=== PATIENT | female | born 1990 | race Caucasian/White ===

== ENCOUNTER 2018-11-24 20:54 | Emergency (ER) | payer OTHER ==
[2018-11-24 21:09] VITALS: BP 117/79
--- NOTE | 2018-11-24 22:04 | XRAY Report ---
Reason: L knee pain after jumping Procedure Date: 11/24/2018 Accession Number: [id number] / [id number] Procedure: XR - Knee 4 View LT CPT Code: FULL RESULT: EXAM: LEFT KNEE RADIOGRAPHY EXAM DATE: 11/24/2018 09:40 PM. CLINICAL HISTORY: Left knee pain after jumping. COMPARISON: None. TECHNIQUE: 4 views. FINDINGS: Bones: Normal. No fractures or bone lesions. Joints: Normal. No effusion. No subluxations. Soft Tissues: Unremarkable IMPRESSION: Normal knee radiography. RADIA
--- NOTE | 2018-11-24 22:09 | ED Physician Documentation ---
PD HPI LOWER EXT INJURY - Stated complaint Stated Complaint: LEFT KNEE PX - Chief complaint Chief Complaint: Trauma Ext - History obtained from History obtained from: Patient, Friend - History of Present Illness PD HPI LOW EXT INJURY LOCATION: Left, Knee Type of injury: Fall, Twist Where injury occurred: Home Timing - onset: How many days ago (9) Timing - duration: Days (9) Timing - details: Abrupt onset Pain level max: 7 Pain level now: 6 Improved by: Rest, Ice, Immobilization Worsened by: Moving, Palpating Associated symptoms: Swelling. No: Weakness, Numbness, Tingling Contributing factors: No: Anticoagulated, Prior ortho surgery, Prosthetic joint Recently seen: Not recently seen Review of Systems Constitutional: denies: Fever, Chills Respiratory: denies: Cough GI: denies: Abdominal Pain, Nausea, Vomiting, Diarrhea : denies: Now EGA Skin: denies: Rash Musculoskeletal: denies: Neck pain, Back pain Neurologic: denies: Headache PD PAST MEDICAL HISTORY - Past Medical History Past Medical History: No - Past Surgical History Past Surgical History: No - Present Medications Home Medications: Ambulatory Orders Medication Instructions Recorded Confirmed Meloxicam [Mobic] 15 mg PO DAILY PRN #20 tablet 11/24/18 - Allergies Allergies/Adverse Reactions: Allergies Allergy/AdvReac Type Severity Reaction Status Date / Time metoclopramide [From Reglan] Allergy Unknown Verified 11/24/18 21:10 - Social History Does the pt smoke?: No Smoking Status: Never smoker Does the pt drink ETOH?: Yes Does the pt have substance abuse?: No - Immunizations Immunizations are current?: Yes - POLST Patient has POLST: No PD ED PE NORMAL - Vitals Vital signs reviewed: Yes - General General: Alert and oriented X 3, No acute distress - Derm Derm: Warm and dry - Extremities Extremities: Other (L knee - laxity to the MCL. LCL, ACL, PCL intact. NVI. ) - Neuro Neuro: Alert and oriented X 3 - Psych Psych: Normal mood, Normal affect Results - Vitals Vitals: Vital Signs - 24 hr 11/24/18 21:04 Temperature 36.4 C L Heart Rate 83 Respiratory 15 Rate Blood Pressure 117/79 O2 Saturation 97 Oxygen O2 Source Room air - Rads (name of study) L knee xray Radiology: Prelim report reviewed, EMP read contemporaneously, See rad report (Normal knee radiography. ) PD MEDICAL DECISION MAKING - ED course Complexity details: reviewed results, re-evaluated patient, considered differential, d/w patient ED course: 28-year-old female presents the emergency department with what appears to be a left MCL sprain. Placed on an articulating hinged knee brace for support and will have her follow-up with her doctor. She has a cane that she is utilizing to ambulate. Negative x-ray. Patient counseled regarding signs and symptoms for which I believe and urgent re-evaluation would be necessary. Patient with good understanding of and agreement to plan and is comfortable going home at this time This document was made in part using voice recognition software. While efforts are made to proofread this document, sound alike and grammatical errors may occur. Departure - Departure Disposition: 01 Home, Self Care Clinical Impression: Sprain of medial collateral ligament of left knee, initial encounter Condition: Good Instructions: ED Sprain Knee Follow-Up: JOAN ALCOCER [Primary Care Provider] - Within 1 week Prescriptions: Meloxicam [Mobic] 15 mg PO DAILY PRN #20 tablet PRN Reason: pain Comments: Use the brace for comfort over the next week. Return if you worsen. Follow-up with your doctor for further care. Your x-ray is normal today. You may need physical therapy once this heals. Discharge Date/Time: 11/24/18 22:26
== END 2018-11-24 22:26 | disposition home or self-care (01) ==
LOC: ED 20:54
DX: S83.412A Sprain of medial collateral ligament of left knee, initial encounter (principal); X50.1XXA Overexertion from prolonged static or awkward postures, initial encounter; Y93.39 Activity, other involving climbing, rappelling and jumping off
CPT/HCPCS: 99283

== ENCOUNTER 2019-01-08 10:36 | Emergency (ER) | payer OTHER ==
--- NOTE | 2019-01-08 12:23 | XRAY Report ---
Reason: dropped heavy object onto left great toe Procedure Date: 01/08/2019 Accession Number: [id number] / [id number] Procedure: XR - Toe(s) LT CPT Code: FULL RESULT: EXAM: LEFT TOE RADIOGRAPHY EXAM DATE: 01/08/2019 11:55 AM. CLINICAL HISTORY: Dropped heavy object onto left great toe. Swelling COMPARISON: None. TECHNIQUE: 3 views. FINDINGS: Bones: Normal. No fracture or bone lesion. Joints: Normal. No subluxations. Soft Tissues: Soft tissue swelling. IMPRESSION: Normal toe radiography. RAD[facility]
--- NOTE | 2019-01-08 13:33 | ED Physician Documentation ---
PD HPI LOWER EXT INJURY - Stated complaint Stated Complaint: L FOOT INJ - Chief complaint Chief Complaint: Ext Problem - History obtained from History obtained from: Patient - History of Present Illness PD HPI LOW EXT INJURY LOCATION: Left, Toe Type of injury: Blunt / blow Timing - onset: Yesterday Timing - details: Abrupt onset Severity Comments: moderate Improved by: Rest Worsened by: Moving, Palpating Associated symptoms: Discolored. No: Tingling, Swelling Contributing factors: No: Anticoagulated Similar symptoms before: Has not had sx before Recently seen: Not recently seen Review of Systems Constitutional: denies: Fever Cardiac: denies: Chest pain / pressure Respiratory: denies: Cough GI: denies: Abdominal Pain Skin: denies: Laceration (s) Musculoskeletal: reports: Extremity pain, Joint pain PD PAST MEDICAL HISTORY - Past Surgical History Past Surgical History: No - Present Medications Home Medications: Ambulatory Orders Medication Instructions Recorded Confirmed Meloxicam [Mobic] 15 mg PO DAILY PRN #20 tablet 11/24/18 - Allergies Allergies/Adverse Reactions: Allergies Allergy/AdvReac Type Severity Reaction Status Date / Time metoclopramide [From Reglan] Allergy Unknown Verified 11/24/18 21:10 - Social History Does the pt smoke?: No Smoking Status: Never smoker Does the pt drink ETOH?: Yes Does the pt have substance abuse?: No - Immunizations Immunizations are current?: Yes - POLST Patient has POLST: No PD ED PE NORMAL - General General: Alert and oriented X 3, No acute distress - HEENT HEENT: Atraumatic, PERRL, EOMI, Ears normal - Derm Derm: Normal color - Extremities Extremities: No deformity, Normal ROM s pain, Other (The patient has tenderness palpation of the Left great toe, there is no evidence of effusion, ecchymosis or crepitus. The patient has normal sensation. The patient has no other area of tenderness in the foot that is acute. The patient has a normal dorsalis pedis pulse and normal cap refill) - Neuro Neuro: Alert and oriented X 3, Normal speech - Psych Psych: Normal affect Results - Vitals Vitals: Vital Signs - 24 hr 01/08/19 11:17 Temperature 36.2 C L Heart Rate 81 Respiratory 16 Rate Blood Pressure 99/63 O2 Saturation 100 Oxygen O2 Source Room air - Rads (name of study) XR toe Radiology: Final report received, See rad report PD MEDICAL DECISION MAKING - ED course ED course: No fracture on x-ray, the patient appears appropriate for discharge and reevaluation as an outpatient. The patient will return to the emergency department for any worsening or any concerns Departure - Departure Disposition: 01 Home, Self Care Clinical Impression: Toe contusion Qualifiers: Encounter type: initial encounter Toe: great toe Damage to nail status: without damage Laterality: unspecified laterality Qualified Code(s): S90.119A - Contusion of unspecified great toe without damage to nail, initial encounter Condition: Good Instructions: ED Contusion Finger Toe Ch Follow-Up: JENNIFER BIRMINGHAM [Primary Care Provider] - Within 1 week Comments: Please return to the emergency department for worsening symptoms or any concerns Forms: Activity restrictions
[2019-01-08 13:55] VITALS: BP 108/62
== END 2019-01-08 13:57 | disposition home or self-care (01) ==
LOC: ED 10:36
DX: S90.112A Contusion of left great toe without damage to nail, initial encounter (principal); W22.8XXA Striking against or struck by other objects, initial encounter
CPT/HCPCS: 73660; 99282; 99283

== ENCOUNTER 2019-10-08 08:49 | Outpatient (CLI) | payer OTHER ==
--- NOTE | 2019-10-10 11:47 | Nuclear Medicine Report ---
Reason: PAIN IN RT FOOT Procedure Date: 10/08/2019 Accession Number: [id number] / [id number] Procedure: NM - Bone 3-Phase CPT Code: Final Report FULL RESULT: EXAM: TRIPLE-PHASE BONE SCAN LIMITED EXAM DATE: 10/08/2019 03:12 PM. CLINICAL HISTORY: Pain in right foot. COMPARISON: None available. TECHNIQUE: Patient was injected with 29.8 mCi of technetium 99m MDP intravenously with flow phase gamma camera imaging anteriorly over the feet and ankles, 5 seconds per frame for 1 minute. Subsequently, blood pool images of the feet and ankles were obtained. The patient returned 3 hours later for multiple spot images of the feet and ankles. FINDINGS: Flow Phase: Slightly greater flow to the right ankle. Blood Pool Phase: Asymmetrically greater activity in the medial right ankle and in the left mid foot. Delayed Phase: There is nonfocal, asymmetrically greater uptake in the right ankle and left mid foot. IMPRESSION: 1. Hyperemia with asymmetric delayed phase nonfocal increased uptake in the medial right ankle. 2. Blood pool and delayed phase asymmetrically greater activity in the left mid foot. RAD[facility]
== END 2019-10-08 08:50 | disposition home or self-care (01) ==
LOC: DI 08:49
PROVIDERS: ATTEND Physician Assistant
DX: M79.671 Pain in right foot (principal); R68.89 Other general symptoms and signs
CPT/HCPCS: 78315

== ENCOUNTER 2021-01-15 18:27 | Emergency (ER) | payer OTHER ==
[2021-01-15] MEDS ORDERED: PROMETHAZINE INJ 25 MG in SODIUM CHLORIDE 0.9% 50 ML IV STA (18:40)
[2021-01-15] MEDS ORDERED: DEXAMETHASONE 10 MG/ML VIAL IVP STA (18:40)
[2021-01-15] MEDS ORDERED: SODIUM CHLORIDE 0.9% 1,000 ML IV STA (18:40)
[2021-01-15] MEDS ORDERED: KETOROLAC 30 MG/ML VIAL IVP STA (18:40)
--- NOTE | 2021-01-15 18:49 | ED Physician Documentation ---
PD HPI HEADACHE - Stated complaint Stated Complaint: KEMP,VOMITING,WEAKNESS - Chief complaint Chief Complaint: Neuro - History obtained from History obtained from: Patient - Additional information Additional information: 30-year-old woman with history of migraines. Had sclerotherapy of varicose veins on her legs today and developed bilateral throbbing headache ever since associated with nausea and light sensitivity similar to prior migraines. She is tried Mobic, Maxalt, Excedrin at home without relief. Pain was gradual in onset and similar to prior migraines Review of Systems Ten Systems: 10 systems reviewed and negative Constitutional: denies: Fever, Chills Cardiac: denies: Chest pain / pressure, Palpitations Respiratory: denies: Dyspnea, Cough PD PAST MEDICAL HISTORY - Past Surgical History Past Surgical History: No - Present Medications Home Medications: Ambulatory Orders Medication Instructions Recorded Confirmed Meloxicam [Mobic] 15 mg PO DAILY PRN #20 tablet 11/24/18 - Allergies Allergies/Adverse Reactions: Allergies Allergy/AdvReac Type Severity Reaction Status Date / Time metoclopramide [From Reglan] Allergy Unknown Verified 01/15/21 18:31 - Social History Does the pt smoke?: No Smoking Status: Never smoker Does the pt drink ETOH?: Yes Does the pt have substance abuse?: No - Immunizations Immunizations are current?: Yes - POLST Patient has POLST: No PD ED PE NORMAL - Vitals Vital signs reviewed: Yes - General General: Alert and oriented X 3, Other (uncomfortable) - Neck Neck: Supple, no meningeal sign, No bony TTP - Neuro Neuro: Alert and oriented X 3, No motor deficit, No sensory deficit, Normal speech Results - Vitals Vitals: Vital Signs - 24 hr 01/15/21 01/15/21 18:32 19:34 Temperature 36.6 C Heart Rate 82 79 Respiratory 19 16 Rate Blood Pressure 103/65 110/74 O2 Saturation 100 98 Oxygen O2 Source Room air PD MEDICAL DECISION MAKING - ED course ED course: The headache is gradual in onset and similar to prior headaches. As such I doubt subarachnoid hemorrhage. There are no infectious symptoms such as fever or stiff neck to make me suspect meningitis. No carbon monoxide exposure by history. Initially treated with Toradol, dexamethasone, Phenergan and IV fluids. She had minimal relief with this and this was followed with IV Haldol and Benadryl. She had more relief with this but still had a significant headache. At that point though she felt like she could go home and go to sleep and declined further treatment. Departure - Departure Disposition: Home, Self Care Clinical Impression: Migraine Qualifiers: Migraine type: with aura Status migrainosus presence: with status migrainosus Intractability: intractable Qualified Code(s): G43.111 - Migraine with aura, intractable, with status migrainosus Condition: Good Record reviewed to determine appropriate education?: Yes Instructions: ED Headache Migraine Comments: Return anytime for new or worsening symptoms or unbearable pain. Follow-up with your neurologist as routine.
[2021-01-15] MEDS ORDERED: HALOPERIDOL 5 MG/ML VIAL IVP ONE (19:26)
[2021-01-15] MEDS ORDERED: diphenhydrAMINE INJ 50 MG/ML VIAL IVP STA (19:26)
[2021-01-15 19:43] VITALS: BP 110/74
== END 2021-01-15 20:25 | disposition home or self-care (01) ==
LOC: ED 18:27
DX: G43.111 Migraine with aura, intractable, with status migrainosus (principal)
CPT/HCPCS: 96365; 96375; 99283; J1200; J7040

== ENCOUNTER 2021-04-10 18:48 | Emergency (ER) | payer OTHER ==
--- NOTE | 2021-04-10 19:20 | ED Physician Documentation ---
PD HPI FOCAL NEURO - Stated complaint Stated Complaint: STROKE SYMPTOMS - Chief complaint Chief Complaint: Neuro - History obtained from History obtained from: Patient - History of Present Illness Timing - onset: Today Timing - duration: Hours Timing - details: Gradual onset, Still present Severity of deficit: Moderate Weakness: No: Face, Arm, Hand, Leg, Foot, Right, Left Numbness: Arm, Hand, Leg, Foot, Left Associated symptoms: Headache, Nausea / vomiting. No: Seizure, Syncope, Fall, Head injury, Chest pain, Neck pain, Back pain, Fever Contributing factors: positive: Other (hx of migraine) Baseline status: positive: A&OX3, ambulatory, indep Similar symptoms before: Diagnosis (migraine) Recently seen: Not recently seen - Additional information Additional information: 30-year-old female with a history of migraines has nausea a low-grade headache and she has developed numbness to the left side of her body as well as some difficulty with speaking. She is not having difficulty with strength. She is having some difficulty making words happen. She does not feel that she is anxious.The patient has had multiple evaluations for migraine previously and on initial presentation she tells me that she has had as many as 20 CAT scans of her head. Review of Systems Constitutional: denies: Fever Eyes: denies: Decreased vision Ears: denies: Loss of hearing, Ear pain Nose: denies: Rhinorrhea / runny nose, Congestion Throat: denies: Sore throat Cardiac: denies: Chest pain / pressure, Palpitations Respiratory: denies: Dyspnea, Cough GI: reports: Nausea. denies: Abdominal Pain, Vomiting, Constipation, Diarrhea : denies: Dysuria, Frequency Skin: denies: Rash Musculoskeletal: denies: Neck pain, Back pain, Extremity pain Neurologic: reports: Numbness, Difficulty speaking, Headache. denies: Generalized weakness, Focal weakness, Confused, Altered mental status, Head injury, LOC PD PAST MEDICAL HISTORY - Past Surgical History Past Surgical History: No - Present Medications Home Medications: Ambulatory Orders Medication Instructions Recorded Confirmed Butalbit/Acetamin/Caff/Codeine 1 cap PO Q4H 04/10/21 04/10/21 [Fioricet-Cod [id number] Cap] Promethazine [Phenergan] 25 mg PO Q6H PRN 04/10/21 04/10/21 Rizatriptan 10 mg PO Q6HR 04/10/21 04/10/21 - Allergies Allergies/Adverse Reactions: Allergies Allergy/AdvReac Type Severity Reaction Status Date / Time metoclopramide [From Reglan] Allergy Unknown Verified 04/10/21 19:08 - Social History Does the pt smoke?: No Smoking Status: Never smoker Does the pt drink ETOH?: Yes Does the pt have substance abuse?: No - Immunizations Immunizations are current?: Yes - POLST Patient has POLST: No PD ED PE NORMAL - Vitals Vital signs reviewed: Yes (Hypertensive mild) - General General: Alert and oriented X 3, Well developed/nourished, Other (Anxious appearing 30-year-old female who is hyperventilating and having some difficulty getting words out. She is having some difficulty with word finding.) - HEENT HEENT: Atraumatic, PERRL, EOMI - Neck Neck: Supple, no meningeal sign, No bony TTP - Cardiac Cardiac: RRR, No murmur - Respiratory Respiratory: No respiratory distress, Clear bilaterally - Abdomen Abdomen: Normal bowel sounds, Soft, Non tender, Non distended, No organomegaly - Back Back: No CVA TTP, No spinal TTP - Derm Derm: Normal color, Warm and dry, No rash - Extremities Extremities: No deformity, No edema - Neuro Neuro: Alert and oriented X 3, spanish lecturer 2-12 intact, No motor deficit, No sensory deficit, Other (Speech is halted and word finding is present. The patient appears frustrated with attempts at speaking.) Eye Opening: Spontaneous Motor: Obeys Commands Verbal: Oriented GCS Score: 15 - Psych Psych: Normal mood, Normal affect NIHSS - Time Time: 19:28 - Level of Consciousness Level of consciousness: (0) Alert, Keenly responsive LOC Questions: (0) Answers both Q's correct LOC Commands: (0) Performs both correctly - Gaze Best Gaze: (0) Normal - Visual Visual: (0) No loss - Facial Palsy Facial Palsy: (0) Normal, symmetrical movement - Motor Arms (both separate) Motor Arm (right): (0) No drift Motor Arm (left): (0) No drift - Motor Legs (both separate) Motor Leg (right): (0) No drift Motor Leg (left): (0) No drift - Limb Ataxia Limb Ataxia: (0) Absent - Sensory Sensory: (0) Normal - Best Language Best Language: (1) [id number] - Dysarthria Dysarthria: (0) Normal - Extinction and Inattention (formally neg Extinction and inattention: (0) No abnormality - Total Score/Results Total Score/Result: 1 Results - Vitals Vitals: Vital Signs - 24 hr 04/10/21 04/10/21 04/10/21 19:02 19:55 20:11 Temperature 37.1 C Heart Rate 95 89 Respiratory 18 16 15 Rate Blood Pressure 111/88 H 124/74 O2 Saturation 100 99 04/10/21 04/10/21 04/10/21 21:01 21:10 21:42 Temperature Heart Rate 77 72 80 Respiratory 16 16 16 Rate Blood Pressure 108/75 97/63 O2 Saturation 97 100 04/10/21 04/10/21 04/10/21 21:50 22:58 23:56 Temperature Heart Rate 89 77 68 Respiratory 16 14 16 Rate Blood Pressure 96/79 106/70 O2 Saturation 100 97 98 Oxygen O2 Source Room air - EKG (time done) 1856 Rate: Rate (enter#) (98) Rhythm: NSR Ischemia: Normal ST segments Compare to prior EKG: Old EKG unavailable Computer interpretation: Agree with computer - Labs Labs: Laboratory Tests 04/10/21 04/10/21 04/10/21 19:40 19:40 21:30 WBC 5.7 RBC 4.33 Hgb 13.5 Hct 39.9 MCV 92.1 MCH 31.2 H MCHC 33.8 RDW 12.3 Plt Count 137 MPV 10.6 Neut # (Auto) 2.9 Lymph # (Auto) 2.2 [place] # (Auto) 0.4 Eos # (Auto) 0.1 Baso # (Auto) 0.0 Absolute Nucleated RBC 0.00 Nucleated RBC % 0.0 Sodium 137 Potassium 3.2 L Chloride 100 L Carbon Dioxide 26 Anion Gap 11.0 BUN 15 Creatinine 0.6 Estimated GFR (MDRD) 119 Glucose 99 Calcium 9.3 Total Bilirubin 1.3 H AST 26 ALT 27 Alkaline Phosphatase 59 Total Protein 7.7 Albumin 4.8 Globulin 2.9 Albumin/Globulin Ratio 1.7 Lipase 29 Urine Color YELLOW Urine Clarity CLEAR Urine pH 8.5 H Ur Specific [place] 1.015 Urine Protein NEGATIVE Urine Glucose (UA) NEGATIVE Urine Ketones 15 H Urine Occult Blood NEGATIVE Urine Nitrite NEGATIVE Urine Bilirubin NEGATIVE Urine Urobilinogen 0.2 (NORMAL) Ur Leukocyte Esterase NEGATIVE Ur Microscopic Review NOT INDICATED Urine Culture Comments NOT INDICATED Urine HCG, Qual NEGATIVE Urine Opiates Screen NEGATIVE Ur Oxycodone Screen NEGATIVE Urine Methadone Screen NEGATIVE Ur Propoxyphene Screen NEGATIVE Ur Barbiturates Screen POSITIVE H Ur Tricyclics Screen NEGATIVE Ur Phencyclidine Scrn NEGATIVE Ur Amphetamine Screen NEGATIVE U Methamphetamines Scrn NEGATIVE U Benzodiazepines Scrn NEGATIVE Urine Cocaine Screen NEGATIVE U Cannabinoids Screen NEGATIVE - Rads (name of study) CT head Radiology: Prelim report reviewed (Impression: 1. No acute intracranial abnormality. Age-appropriate exam.), EMP read indepedently, See rad report PD MEDICAL DECISION MAKING - ED course Complexity details: reviewed old records, reviewed results, re-evaluated patient, considered differential, d/w patient ED course: 30-year-old anxious appearing female presents with left-sided body numbness and difficult to cool to the finding words. She appears frustrated with this. She is administered Ativan and developed subsequent worsening of her headache. She is treated for migraine with the usual migraine cocktail consisting of a liter of saline 10 mg of dexamethasone, 10 mg of Compazine, 25 mg of Benadryl, and 30 mg of Toradol intravenously. She has some improvement in her symptoms of articulation and continues to have headache and nausea. She is subsequently administered Dilaudid and Phenergan with improvement in her headache. I queried the patient about her CAT scans as I found in our record that we have none here. She indicated to me that she had CAT scans done in 2003 and 2009 and we performed a CAT scan here today. Departure - Departure Disposition: 01 Home, Self Care Clinical Impression: Migraine Qualifiers: Migraine type: hemiplegic Status migrainosus presence: without status migrainosus Intractability: not intractable Qualified Code(s): G43.409 - Hemiplegic migraine, not intractable, without status migrainosus Condition: Stable Instructions: ED Headache Migraine Follow-Up: KEVIN STEELE MD [Primary Care Provider] - Forms: Activity restrictions
[2021-04-10] MEDS ORDERED: LORazepam 2 MG/ML VIAL IVP STA (19:37)
[2021-04-10 19:51] LABS: BASOPHILS % (AUTO) 0.4 %; EOSINOPHILS # (AUTO) 0.1 10^3/uL (0.0-0.7); EOSINOPHILS % (AUTO) 1.1 %; HCT - HEMATOCRIT 39.9 % (37.0-47.0); HGB - HEMOGLOBIN 13.5 g/dL (12.0-16.0); LYMPHOCYTES # (AUTO) 2.2 10^3/uL (1.5-3.5); LYMPHOCYTES % (AUTO) 38.9 %; MEAN CORPUSCULAR HEMOGLOBIN 31.2 pg (27.0-31.0); MEAN CORPUSCULAR HGB CONC 33.8 g/dL (32.0-36.0); MEAN CORPUSCULAR VOLUME 92.1 fL (81.0-99.0); MEAN PLATELET VOLUME 10.6 fL (7.9-10.8); MONOCYTES # (AUTO) 0.4 10^3/uL (0.0-1.0); MONOCYTES % (AUTO) 7.8 %; NEUTROPHILS # (AUTO) 2.9 10^3/uL (1.5-6.6); NEUTROPHILS % (AUTO) 51.6 %; PLT - PLATELET COUNT 137 10^3/uL (130-450); RED BLOOD COUNT 4.33 10^6/uL (4.20-5.40); RED CELL DISTRIBUTION WIDTH 12.3 % (12.0-15.0); WHITE BLOOD COUNT 5.7 x10^3/uL (4.8-10.8)
[2021-04-10 20:01] LABS: ALBUMIN 4.8 g/dL (3.2-5.5); ALBUMIN/GLOBULIN RATIO 1.7 (1.0-2.2); BILIRUBIN,TOTAL 1.3 mg/dL (0.2-1.0); CALCIUM 9.3 mg/dL (8.5-10.3); CREATININE 0.6 mg/dL (0.4-1.0); POTASSIUM 3.2 mmol/L (3.5-5.0); TOTAL PROTEIN 7.7 g/dL (6.7-8.2)
[2021-04-10] MEDS ORDERED: SODIUM CHLORIDE 0.9% 1,000 ML IV STA (20:16)
[2021-04-10] MEDS ORDERED: PROCHLORPERAZINE 10 MG/2 ML VIAL IVP STA (20:16)
[2021-04-10] MEDS ORDERED: DEXAMETHASONE 10 MG/ML VIAL IVP STA (20:17)
[2021-04-10] MEDS ORDERED: diphenhydrAMINE INJ 50 MG/ML VIAL IVP STA (20:17)
[2021-04-10] MEDS ORDERED: KETOROLAC 30 MG/ML VIAL IVP STA (20:17)
[2021-04-10 21:48] LABS: MUDS CUTOFF CONCENTRATIONS CUTOFF CONC BELOW:
[2021-04-10 21:50] LABS: BILIRUBIN,URINE NEGATIVE (NEGATIVE); GLUCOSE, URINE (UA) NEGATIVE (NEGATIVE); KETONES,URINE (UA) 15 mg/dL (NEGATIVE); LEUKOCYTE ESTERASE, URINE NEGATIVE (NEGATIVE); NITRITE,URINE NEGATIVE (NEGATIVE); OCCULT BLOOD,URINE NEGATIVE (NEGATIVE); PH,URINE 8.5 PH (5.0-7.5); PROTEIN,URINE NEGATIVE (NEGATIVE); UROBILINOGEN,URINE 0.2 (NORMAL) E.U./dL (NORMAL)
[2021-04-10 21:52] LABS: CLARITY,URINE CLEAR (CLEAR); HCG UR QUAL NEGATIVE
[2021-04-10 22:00] LABS: AMPHETAMINE SCREEN,URINE NEGATIVE (NEGATIVE); BARBITURATE SCREEN,UR POSITIVE (NEGATIVE); BENZODIAZEPINES SCREEN, URINE NEGATIVE (NEGATIVE); COCAINE SCREEN URINE NEGATIVE (NEGATIVE); METHADONE SCREEN, URINE NEGATIVE (NEGATIVE); METHAMPHETAMINES SCREEN, URINE NEGATIVE (NEGATIVE); OPIATE SCREEN, URINE NEGATIVE (NEGATIVE); OXYCODONE SCREEN, URINE NEGATIVE (NEGATIVE); PROPOXYPHENE SCREEN, URINE NEGATIVE (NEGATIVE); THC CANNABINOID SCREEN, URINE NEGATIVE (NEGATIVE); TRICYCLIC ANTIDEPRESSANT,URINE NEGATIVE (NEGATIVE)
[2021-04-10] MEDS ORDERED: HYDROmorphone 1 MG/ML CARPUJECT IVP STA (22:06)
[2021-04-10] MEDS ORDERED: PROMETHAZINE INJ 25 MG in SODIUM CHLORIDE 0.9% 50 ML IV STA (22:06)
[2021-04-10] MEDS ORDERED: PROMETHAZINE 25 MG/1 ML VIAL ONE (22:11)
[2021-04-10 23:57] VITALS: BP 106/70
--- NOTE | 2021-04-11 07:37 | CT Report ---
PROCEDURE: HEAD WO INDICATIONS: headache L sided numbness TECHNIQUE: Noncontrast 4.5 mm thick angled axial sections acquired from the foramen magnum to the vertex. For r adiation dose reduction, the following was used: automated exposure control, adjustment of mA and/or kV according to patient size. COMPARISON: None. FINDINGS: Image quality: Excellent. CSF spaces: Basal cisterns are patent. No extra-axial fluid collections. Ventricles are normal in size and shape. Brain: No midline shift. No intracranial masses or hemorrhage. Sorensen-white matter interface is norm al. Skull and face: Calvarium and visualized facial bones are intact, without suspicious lesions. Sinuses: Visualized sinuses and mastoids are clear. IMPRESSION: No acute intracranial abnormality. No significant discrepancy with the preliminary interpretation. Reviewed by: Luanne Reynolds MD on 04/11/2021 7:36 AM PDT Approved by: Luanne Reynolds MD on 04/11/2021 7:36 AM PDT Station ID: [id number]
== END 2021-04-11 00:33 | disposition home or self-care (01) ==
LOC: ED 18:48
DX: G43.409 Hemiplegic migraine, not intractable, without status migrainosus (principal); R47.01 Aphasia; R20.0 Anesthesia of skin
CPT/HCPCS: 36415; 70450; 80053; 80306; 81003; 81025; 83690; 85025; 93005; 96365; 96375; 99284; 99285; J1170; J1200; J2060; J7040; 81001; 87086

== ENCOUNTER 2021-04-23 18:02 | Emergency (ER) | payer OTHER ==
--- NOTE | 2021-04-23 20:14 | ED Physician Documentation ---
PD HPI HEADACHE - Stated complaint Stated Complaint: KEMP - Chief complaint Chief Complaint: Neuro - History obtained from History obtained from: Patient - History of Present Illness Timing - onset: Enter time (14:00), Today Timing - onset during: Rest Timing - details: Gradual onset Worst headache ever?: No: Worst headache ever? Location: Global Quality: Throbbing, Aching Associated symptoms: Nausea, Numbness (facial, perioral, hands/feet). No: Fever, Stiff neck, Vomiting, Weakness Improved by: Dark room Worsened by: Light Similar symptoms before: Diagnosis (migraine headache) Recently seen: Emergency Dept - Additional information Additional information: c/o headache and nausea since 2PM today, mostly c/w previous migraine headaches. She is also having facial and seferino/intraoral numbness and LUE/LLE nubness, which is atypical for her migraine headaches Review of Systems Constitutional: denies: Fever, Chills, Sweats Eyes: reports: Photophobia. denies: Decreased vision Cardiac: reports: Reviewed and negative Respiratory: reports: Reviewed and negative GI: reports: Nausea. denies: Abdominal Pain, Vomiting Neurologic: reports: Numbness, Headache. 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 : None HEENT: None Psych: None Musculoskeletal: None Derm: None - Past Surgical History Past Surgical History: No - Present Medications Home Medications: Ambulatory Orders Medication Instructions Recorded Confirmed Butalbit/Acetamin/Caff/Codeine 1 cap PO Q4H 04/10/21 04/10/21 [Fioricet-Cod [id number] Cap] Promethazine [Phenergan] 25 mg PO Q6H PRN 04/10/21 04/10/21 Rizatriptan 10 mg PO Q6HR 04/10/21 04/10/21 Promethazine Sup [Phenergan Supp] 12.5 mg NM Q6HR PRN #14 supp 04/23/21 - Allergies Allergies/Adverse Reactions: Allergies Allergy/AdvReac Type Severity Reaction Status Date / Time metoclopramide [From Reglan] Allergy Unknown Verified 04/23/21 18:14 - Social History Does the pt smoke?: No Smoking Status: Never smoker Does the pt drink ETOH?: Yes Does the pt have substance abuse?: No - Immunizations Immunizations are current?: Yes - POLST Patient has POLST: No PD ED PE NORMAL - Vitals Vital signs reviewed: Yes - General General: Alert and oriented X 3, No acute distress, Well developed/nourished, Other (lights off for patient comfort; she is wearing sunglasses) - HEENT HEENT: PERRL, EOMI, Other (mild photophobia) - Neck Neck: Supple, no meningeal sign - Cardiac Cardiac: RRR, No murmur - Respiratory Respiratory: No respiratory distress, Clear bilaterally - Neuro Neuro: Alert and oriented X 3, gameplay 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 she also notes facial and extremity numbness which she says is not typical for her previous migraine headaches. she is given PO decadron, IM toradol and IM phenergan with mild improvement. She had further improvement with PO benadryl and IM dilaudid, and is discharged after a second dose of IM dilaudid. Given take home pack of vicodin. Departure - Departure Disposition: 01 Home, Self Care Clinical Impression: Migraine Qualifiers: Migraine type: with aura Status migrainosus presence: without status migrainosus Intractability: not intractable Qualified Code(s): G43.109 - Migraine with aura, not intractable, without status migrainosus Condition: Good Instructions: ED Headache Migraine Follow-Up: Rosa Santizo MD [Primary Care Provider] - Prescriptions: Promethazine Sup [Phenergan Supp] 12.5 mg NM Q6HR PRN #14 supp PRN Reason: Nausea / Vomiting Discharge Date/Time: 04/23/21 23:50
[2021-04-23] MEDS ORDERED: KETOROLAC 15 MG/ML VIAL IM STA (20:23)
[2021-04-23] MEDS ORDERED: CHERRY SYRUP 10 ML UDC PO ONE (20:23)
[2021-04-23] MEDS ORDERED: PROMETHAZINE 25 MG/1 ML VIAL IM STA (20:23)
[2021-04-23] MEDS ORDERED: DEXAMETHASONE 10 MG/ML VIAL PO STA (20:23)
[2021-04-23] MEDS ORDERED: diphenhydrAMINE 25 MG CAPSULE PO STA (21:35)
[2021-04-23] MEDS ORDERED: HYDROmorphone 1 MG/ML CARPUJECT IM STA ×2 (21:35→23:18)
[2021-04-23] MEDS ORDERED: HYDROcod/ACET 5/325 Prepack 4 PO STA (23:18)
[2021-04-23 23:55] VITALS: BP 102/62
== END 2021-04-23 23:50 | disposition home or self-care (01) ==
LOC: ED 18:02
DX: G43.109 Migraine with aura, not intractable, without status migrainosus (principal); R20.0 Anesthesia of skin
CPT/HCPCS: 96372; 99282; 99283; A9270; J1170

== ENCOUNTER 2022-01-17 11:27 | Outpatient (CLI) | payer OTHER | END 2022-01-17 11:28 | disposition critical access hospital (66) | LOC: EMS 11:27 | DX: G43.909 Migraine, unspecified, not intractable, without status migrainosus (principal); R11.2 Nausea with vomiting, unspecified; R20.2 Paresthesia of skin; R47.89 Other speech disturbances | CPT/HCPCS: A0425; A0429 ==

== ENCOUNTER 2022-01-17 11:51 | Emergency (ER) | payer OTHER ==
--- NOTE | 2022-01-17 12:05 | ED Physician Documentation ---
History of Present Illness - Stated complaint Stated Complaint: MIGRAINE - Additonal information Additional information: 31-year-old female who has a history of chronic and recurrent migraines presents to the emergency department via EMS for what she describes as a hemiplegic nieves rosas. She is followed by to neurologist for her recurrent migraines and receives pots therapy as well as Botox. She also has a cocktail of medications at home that she typically takes for her migraines. Historically she has occasionally had some hemiplegia and difficulty with word finding with her migraines. This headache began yesterday as bitemporal and described as ice picks piercing her brain. She has not had any fevers. This morning she woke up and noted that she felt a little weak on her right side and she was having some difficulty with word finding and stuttering. She did not take her typical cocktail of migraines last night hoping to feel better this morning. Patient tells this provider she has had numerous CTs and MRI of her head and would prefer to avoid that today if possible. Review of Systems Constitutional: denies: Fever, Chills Eyes: reports: Photophobia. 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 : None HEENT: None Psych: None Musculoskeletal: None Derm: None - Past Surgical History Past Surgical History: No - Present Medications Home Medications: Ambulatory Orders Medication Instructions Recorded Confirmed Butalbit/Acetamin/Caff/Codeine 1 cap PO Q4H 04/10/21 01/17/22 [Fioricet-Cod 71-705-10-30 Cap] Promethazine [Phenergan] 25 mg PO Q6H PRN 04/10/21 01/17/22 Rizatriptan 10 mg PO Q6HR 04/10/21 01/17/22 Promethazine Sup [Phenergan Supp] 12.5 mg UT Q6HR PRN #14 supp 04/23/21 01/17/22 Baclofen 1 tab ORAL PRN PRN 01/17/22 01/17/22 Pyridostigmine [place] [Mestinon] 60 mg PO DAILY 01/17/22 01/17/22 - Allergies Allergies/Adverse Reactions: Allergies Allergy/AdvReac Type Severity Reaction Status Date / Time metoclopramide [From Reglan] Allergy Unknown Verified 01/17/22 12:04 - Social History Does the pt smoke?: No Smoking Status: Never smoker Does the pt drink ETOH?: Yes Does the pt have substance abuse?: No - Immunizations Immunizations are current?: Yes - POLST Patient has POLST: No PD ED PE EXPANDED - General General: Alert, No acute distress - HEENT HEENT: Atraumatic, PERRL - Neck Neck: Supple w/out meningeal sx. No: Adenopathy - Cardiac Cardiac: Regular Rate, Radial strong equal, Cap refill < 2 sec. No: Murmur Present - Respiratory Respiratory: Clear to ausultation bob. No: Distress, Labored - Abdomen Abdomen: Normal Bowel sounds. No: Tender to palpation - Derm Derm: Normal color, Warm and dry. No: Rash - Extremities Extremities: Normal, Motor intact, Sensory intact, Other (Motor strength 5 of 5 bilateral lower extremities for 5 right arm 5 of 5 left arm). No: Deformity, Tenderness - Neuro Neuro: Alert and Oriented X 3, CNII-XII intact. 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 She has a history of hemiplegic migraine which in the past has shown her to have some left-sided weakness as well as slurred speech. Today she presents with very mild weakness on the right side and some difficulty with word finding but no slurring of her words. She is followed by a neurologist at [facility]. Typically takes Pap therapy as well as Botox. She requested to avoid any imaging given that she has had multiple CT scans in the past. Here in the emergency department she was initially given a liter of crystalloid as well as Compazine and Benadryl with some moderate relief of her symptoms. This was then followed by 30 mg of Toradol IV. Following this the patient is nearly headache free. She has no motor deficits and her difficulty with word finding has fully resolved. She is feeling better and requesting to be discharged home. She is encouraged continued follow-up with her neurologist. Departure - Departure Disposition: , Self Care Clinical Impression: Migraine Qualifiers: Migraine type: hemiplegic Status migrainosus presence: without status migrainosus Intractability: not intractable Qualified Code(s): G43.409 - Hemiplegic migraine, not intractable, without status migrainosus Condition: Stable Record reviewed to determine appropriate education?: Yes Comments: [place] sanchez were seen today in the emergency department for your hemiplegic migraine. Here in the emergency department we gave you a liter of IV fluids as well as Compazine and Benadryl which started to improve the headache. This was then followed by IV Toradol. Following this cocktail of medications your headache has nearly fully resolved. I encourage you to have continue close follow-up with [facility] as well as your neurologist. Return to the ED for any other emergent headaches or concerning symptoms
[2022-01-17] MEDS ORDERED: PROCHLORPERAZINE 10 MG/2 ML VIAL IVP STA (12:06)
[2022-01-17] MEDS ORDERED: diphenhydrAMINE INJ 50 MG/ML VIAL IVP STA (12:06)
[2022-01-17] MEDS ORDERED: SODIUM CHLORIDE 0.9% 1,000 ML IV STA (12:06)
--- OUTSIDE RECORDS SUMMARY | 2022-01-17 12:51 | EXTERNAL MEDICAL SUMMARY RPT | Continuity of Care Document ---
:1990 Author Organization [facility] Address [address] [place] [address] Phone Care Team Providers Name Role Phone Gray Unavailable Unavailable M.D. Unavailable Unavailable Allergies No information. Encounters No information. Medications date description facility 20211217 promethazine All 20211217 pyridostigmine bromide All 20211217 clonidine hcl All 20211217 hydrocodone-acetaminophen All 20211217 cromolyn All 20211217 cyclobenzaprine All 20211217 gabapentin All 20211217 baclofen All Problems date description facility 20211217 Temporomandibular [id number] n syndrome All 20211217 Temporomandibular joint disorders, unsp ecified All 20211217 Arthralgia of right temporomandibular j oint All 20211130 Enthesopathy, unspecified [facility] Results No information. Vital Signs date measurement value source 20211217 weight_standard 114 lb 20211217 weight_metric 51.71 kg 20211217 respiration_rate 18 /min 20211217 height_standard 64 in 20211217 height_metric 162.56 cm 20211217 heart_rate 72 /min 20211217 BP_systolic 120 mm[Hg] 20211217 BP_diastolic 79 mm[Hg] 20211217 BMI 19.64 kg/m2
[2022-01-17] MEDS ORDERED: KETOROLAC 30 MG/ML VIAL IVP STA (13:08)
[2022-01-17 14:11] VITALS: BP 112/80
== END 2022-01-17 14:11 | disposition home or self-care (01) ==
LOC: EDUNIT# → ED 11:51
DX: G43.409 Hemiplegic migraine, not intractable, without status migrainosus (principal)
CPT/HCPCS: 96374; 96375; 99283; 99284; J1200

== ENCOUNTER 2022-10-18 17:26 | Emergency (ER) | payer OTHER ==
--- OUTSIDE RECORDS SUMMARY | 2022-10-18 17:48 | EXTERNAL MEDICAL SUMMARY RPT | Continuity of Care Document ---
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 is a large amount of stool in (unknown) (no (unknown) (unknown) COMPARISON: (units (un known) date) None. unknown) (unknown) (no (unknown) (unknown) : 1990 (units (unknown) date) Acct:[id number] unknown) (unknown) (no (unknown) (unknown) Dictated by: (units (u nknown) date) Luanne Reynolds M.D. unknown) on 10/08/2022 at 16:28 (unknown) (no (unknown) (unknown) FINDINGS: (units (unkn own) date) unknown) (unknown) (no (unknown) (unknown) IMPRESSION: (units (un known) date) unknown) (unknown) (no (unknown) (unknown) INDICATIONS: (units (u nknown) date) CONSTIPATION unknown) (unknown) (no (unknown) (unknown) [facility] (units (unknown) date) unknown) (unknown) (no (unknown) (unknown) Loc: RAD (units (unkno wn) date) unknown) (unknown) (no (unknown) (unknown) Ordering (units (unkno wn) date) Provider: unknown) Ron Moreira MD (unknown) (no (unknown) (unknown) PROCEDURE: XR (units ( unknown) date) ABDOMEN 1V unknown) (unknown) (no (unknown) (unknown) Patient: (units (unkno wn) date) Kopradipaver,Oliv unknown) ia C MR (unknown) (no (unknown) (unknown) Procedure: XR (units ( unknown) date) abdomen 1V unknown) (unknown) (no (unknown) (unknown) Signed (units (unkno wn) date) unknown) (unknown) (no (unknown) (unknown) Soft tissues: (units ( unknown) date) No suspicious unknown) abdominal calcifications. Visualized solid organ (unknown) (no (unknown) (unknown) Surgical (units (unkno wn) date) changes and unknown) devices: Two Sitz markers are seen, 1 in the right (unknown) (no (unknown) (unknown) TECHNIQUE: One (units (unknown) date) view of the unknown) abdomen acquired. (unknown) (no (unknown) (unknown) XRay Report (units (un known) date) unknown) (unknown) (no (unknown) (unknown) abdomen, (units (unkno wn) date) unknown) (unknown) (no (unknown) (unknown) appear normal (units ( unknown) date) in size. Note is unknown) made of an IUD. (unknown) (no (unknown) (unknown) colon. 2 (units (unkno wn) date) unknown) (unknown) (no (unknown) (unknown) contours (units (unkno wn) date) unknown) (unknown) (no (unknown) (unknown) markers are (units (un known) date) seen unknown) (unknown) (no (unknown) (unknown) probably within (units (unknown) date) hepatic flexure unknown) colon and 1 in the right abdomen, probably (unknown) (no (unknown) (unknown) splenic flexure (units (unknown) date) of colon. unknown) (unknown) (no (unknown) (unknown) within the (units (unk nown) date) unknown) Social History date description facility 2022-10-02 00:00 Never smoked tobacco ([facility] Vital Signs date measurement value units 2022-10-02 00:00 BP_diastolic 74 mmHg 2022-10-02 00:00 BP_systolic 117 mmHg 2022-10-02 00:00 heart_rate 80 /min 2022-10-02 00:00 o2_saturation 100 % 2022-10-02 00:00 respiration_rate 12 /min
--- NOTE | 2022-10-18 18:06 | XRAY Report ---
PROCEDURE: Shoulder 3 View RT INDICATIONS: shoulder inj TECHNIQUE: 3 views of the shoulder were acquired. COMPARISON: None. FINDINGS: Bones: No fractures or dislocations. No suspicious bony lesions. Visualized ribs appear intact. N o displaced clavicle fracture can be seen. Soft tissues: No suspicious soft tissue calcifications. The visualized lung demonstrates a normal a ppearance. IMPRESSION: No acute plain film abnormality of the shoulder can be seen. If it would be helpful for clinical management decision making, please consider a dedicated, schedule d shoulder MRI for further evaluation (assuming that there is no contraindication). Reviewed by: Cristobal Szymanski MD on 10/18/2022 5:05 PM [facility] Approved by: Cristobal Szymanski MD on 10/18/2022 5:05 PM [facility] Station ID: [id number]
[2022-10-18] MEDS ORDERED: oxyCODONE 5 MG TABLET PO STA ×2 (19:33→20:28)
--- NOTE | 2022-10-18 19:34 | ED Physician Documentation ---
PD HPI UPPER EXT INJURY - Stated complaint Stated Complaint: R SHOULDER INJ/FALL - Chief complaint Chief Complaint: Trauma Ext - History obtained from History obtained from: Patient - History of Present Illness Location: Right - Additonal information Additional information: 32-year-old with history of gastroparesis and no possibility of was skiing last night and fell directly on her right shoulder and chest wall with significant pain in those areas. It is relatively mild at rest but hurts a lot of to move the shoulder or scapula at all. No head or neck injury. No other injuries. Review of Systems Constitutional: reports: Reviewed and negative Cardiac: reports: Chest pain / pressure. 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 : None HEENT: None Psych: None Musculoskeletal: None Derm: None - Past Surgical History Past Surgical History: No - Present Medications Home Medications: Ambulatory Orders Medication Instructions Recorded Confirmed Butalbit/Acetamin/Caff/Codeine 1 cap PO Q4H 04/10/21 01/17/22 [Fioricet-Cod [id number] Cap] Promethazine [Phenergan] 25 mg PO Q6H PRN 04/10/21 01/17/22 Rizatriptan 10 mg PO Q6HR 04/10/21 01/17/22 Promethazine Sup [Phenergan Supp] 12.5 mg FL Q6HR PRN #14 supp 04/23/21 01/17/22 Baclofen 1 tab ORAL PRN PRN 01/17/22 01/17/22 pyRIDostigmine bromide [Mestinon] 60 mg PO DAILY 01/17/22 01/17/22 Ibuprofen [Motrin] 600 mg PO Q6H PRN #30 tab 10/18/22 Oxycodone HCl/Acetaminophen 1 - 2 each PO Q6H PRN #10 tablet 10/18/22 [Percocet 5-325 mg Tablet] - Allergies Allergies/Adverse Reactions: Allergies Allergy/AdvReac Type Severity Reaction Status Date / Time metoclopramide [From Reglan] Allergy Unknown Verified 10/18/22 17:35 - Social History Does the pt smoke?: No Smoking Status: Never smoker Does the pt drink ETOH?: Yes Does the pt have substance abuse?: No - Immunizations Immunizations are current?: Yes - POLST Patient has POLST: No PD ED PE NORMAL - Vitals Vital signs reviewed: Yes - General General: Alert and oriented X 3, Other (Comfortable at rest but winces with any motion of the right arm) - Neck Neck: Supple, no meningeal sign, No bony TTP - Cardiac Cardiac: RRR, No murmur - Respiratory Respiratory: No respiratory distress, Clear bilaterally - Abdomen Abdomen: Normal bowel sounds, Soft, Non tender - Back Back: No CVA TTP, No spinal TTP - Derm Derm: Normal color, Warm and dry - Extremities Extremities: Other (Diffusely tender about the right shoulder and unable to range it, she is also tender over the lateral posterior ribs on the right.) - Neuro Neuro: Alert and oriented X 3, Normal speech Results - Vitals Vitals: Vital Signs - 24 hr 10/18/22 10/18/22 17:31 21:44 Temperature 36.7 C Heart Rate 88 62 Respiratory 16 14 Rate Blood Pressure 122/92 H 106/63 O2 Saturation 100 100 Oxygen O2 Source Room air - Rads (name of study) R shoulder XR/R Ribs XR Radiology: Final report received, EMP read indepedently PD Medical Decision Making - ED course Complexity details: reviewed results, considered differential (Shoulder dislocation/internal deragement dennise rib frx.), d/w patient, d/w family Departure - Departure Disposition: 01 Home, Self Care Clinical Impression: Shoulder contusion Qualifiers: Encounter type: initial encounter Laterality: right Qualified Code(s): S40.011A - Contusion of right shoulder, initial encounter Chest wall contusion Qualifiers: Encounter type: initial encounter Laterality: right Qualified Code(s): S20.211A - Contusion of right front wall of thorax, initial encounter Condition: Good Record reviewed to determine appropriate education?: Yes Instructions: ED Contusion Chest Wall Prescriptions: Ibuprofen [Motrin] 600 mg PO Q6H PRN #30 tab PRN Reason: Pain Oxycodone HCl/Acetaminophen [Percocet 5-325 mg Tablet] 1 - 2 each PO Q6H PRN #10 tablet PRN Reason: pain Comments: I sent your prescription electronically to [facility] in [place]. Follow-up with your doctor at the conclusion of the weekend if not improved. Return for new or worsening symptoms. I am prescribing a short course of narcotic pain medication for you. These are potentially dangerous and addictive medications that should be used carefully. These medications may constipate you. Take an [id number]-[id number] stool softener (docusate) twice daily with plenty of water while taking these medications. If you go 24 hours without a bowel movement, take [id number] miralax, per package instructions. Do not drink or drive while taking these medications. If you received narcotic or sedating medications while in the emergency department, do not drive for 24 hours. Store this medication in a safe, secure place and out of reach of children. It is a violation of federal law to give or sell this medication to another person or to use in a manner other than prescribed. The ED will not refill narcotic prescriptions, including prescriptions lost or stolen. To dispose of unwanted medications: 1. [facility] at [address] in [place] has a medication drop box. They accept prescription medications (in pill form) Friday through Friday 9:00 a.m. to 5:00 p.m. 2. The [facility] [place] [employer] accepts prescription medications (in pill form only) for disposal year round. Call for more information. 3. Contact the [facility] for the next [facility] sponsored prescription drug collection event. , [phone], or [phone]; Note that many narcotic pain relievers also contain Tylenol/acetaminophen. Please ensure that your total dose of acetaminophen from all sources does not exceed 3 g (3000 mg) per day. Discharge Date/Time: 10/18/22 21:49
[2022-10-18] MEDS ORDERED: IBUPROFEN 600 MG TABLET PO STA (20:28)
[2022-10-18] MEDS ORDERED: oxyCODONE/ACET 5/325 Prepack 4 PO STA (21:43)
[2022-10-18 21:45] VITALS: BP 106/63
--- NOTE | 2022-10-18 22:12 | XRAY Report ---
PROCEDURE: Ribs w/PA Chest RT INDICATIONS: chest wall inj TECHNIQUE: 4 views of the right ribs were acquired, along with a single view chest. COMPARISON: None. FINDINGS: Surgical changes and devices: None. Incidental note is made of body ornamentation artifact. Bones and chest wall: No fractures or dislocations. No suspicious bony lesions. Overlying soft tis sues appear unremarkable. Lungs and pleura: No pleural effusions or pneumothorax. Lungs appear clear. Mediastinum: Mediastinal contours appear normal. Heart size is normal. IMPRESSION: No displaced rib fracture or pneumothorax can be seen. If there is strong clinical concern for a post traumatic abnormality that is not seen on this plain f ilm study, then please consider a dedicated chest CT with IV contrast for further evaluation. Reviewed by: Cristobal Szymanski MD on 10/18/2022 9:11 PM [facility] Approved by: Cristobal Szymanski MD on 10/18/2022 9:11 PM [facility] Station ID: [id number]
== END 2022-10-18 21:49 | disposition home or self-care (01) ==
LOC: ED 17:26
DX: S40.011A Contusion of right shoulder, initial encounter (principal); S20.211A Contusion of right front wall of thorax, initial encounter; W19.XXXA Unspecified fall, initial encounter; Y93.23 Activity, snow (alpine) (downhill) skiing, snowboarding, sledding, tobogganing and snow tubing
CPT/HCPCS: 71101; 73030; 99282; 99284; A9270

== ENCOUNTER 2023-03-13 18:27 | Emergency (ER) | payer OTHER ==
[2023-03-13] MEDS ORDERED: SODIUM CHLORIDE 0.9% 1,000 ML IV STA (18:42)
[2023-03-13] MEDS ORDERED: PROCHLORPERAZINE 10 MG/2 ML VIAL IVP STA (18:42)
[2023-03-13] MEDS ORDERED: KETOROLAC 15 MG/ML VIAL IVP STA (18:42)
--- NOTE | 2023-03-13 18:51 | ED Physician Documentation ---
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 She presents today with a left-sided migraine headache with some left-sided weakness and numbness and word finding difficulty which is consistent with her prior migraines. She denies any head injury, no fever or chills, no confusion, no vomiting, no neck pain or stiffness. She states this feels similar to prior migraines. Review of Systems Constitutional: reports: Reviewed and negative Eyes: reports: Photophobia. denies: Loss of vision, Decreased vision, Discharge, Irritation Ears: reports: Reviewed and negative Nose: reports: Reviewed and negative Throat: reports: Reviewed and negative Cardiac: reports: Reviewed and negative Respiratory: reports: Reviewed and negative GI: reports: Reviewed and negative : reports: Reviewed and negative Skin: reports: Reviewed and negative Musculoskeletal: reports: Extremity pain (Left foot pain secondary to recent left foot surgery) Neurologic: reports: Numbness, Headache Psychiatric: reports: Reviewed and negative Endocrine: reports: Reviewed and negative PD PAST MEDICAL HISTORY - Past Medical History Past Medical History: Yes Cardiovascular: None Respiratory: None Neuro: Migraines Endocrine/Autoimmune: None 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 : None HEENT: None Psych: None Musculoskeletal: None Derm: None - Past Surgical History Past Surgical History: No - Allergies Allergies/Adverse Reactions: Allergies Allergy/AdvReac Type Severity Reaction Status Date / Time metoclopramide [From Reglan] Allergy Unknown Verified 10/18/22 17:35 ondansetron [From Zofran] Allergy Nausea Verified 03/13/23 18:35 - Social History Does the pt smoke?: No Smoking Status: Never smoker Does the pt drink ETOH?: Yes Does the pt have substance abuse?: No - Immunizations Immunizations are current?: Yes - POLST Patient has POLST: No PD ED PE NORMAL - Vitals Vital signs reviewed: Yes - General General: Alert and oriented X 3, No acute distress, Well developed/nourished - HEENT HEENT: Atraumatic, PERRL, EOMI, Moist mucous membranes, Pharynx benign - Neck Neck: Supple, no meningeal sign, No adenopathy - Cardiac Cardiac: RRR, No murmur - Respiratory Respiratory: No respiratory distress, Clear bilaterally - Derm Derm: Normal color, Warm and dry - Extremities Extremities: Other (Left foot in walking boot) - Neuro Neuro: Alert and oriented X 3, No motor deficit, No sensory deficit, Other (Stuttering speech initially though that completely resolved with treatment of headache) Eye Opening: Spontaneous Motor: Obeys Commands Verbal: Oriented GCS Score: 15 Results - Vitals Vitals: Vital Signs - 24 hr 03/13/23 03/13/23 03/13/23 18:32 18:58 19:44 Temperature 36.9 C Heart Rate 108 H 96 91 Respiratory 16 16 16 Rate Blood Pressure 126/84 H 106/70 120/74 O2 Saturation 100 100 100 Oxygen O2 Source Room air PD Medical Decision Making - ED course Complexity details: reviewed old records, re-evaluated patient, considered differential, d/w patient ED course: This is a 32-year-old female with a complex history as described above who presented with a migraine headache consistent with prior migraines, with hemiplegic symptoms including numbness tingling and stuttering speech. This started today just prior to arrival. Patient was given various options for treatment and headache cocktails and desired IV as she states this typically works best for her. She is given 1 L of IV normal saline, 10 mg of IV Compazine and 15 mg of IV Toradol with very quick Improvement in her headache down to a 3 and she was requesting to leave. She states usually her headaches take substantially longer to improve but she thinks she caught it early and felt like her symptoms were nearly completely resolved and desired to go home. She had no residual neurologic symptoms, her stuttering speech and left-sided numbness tingling had also resolved. As this is consistent with her prior hemiplegic headaches, I have low suspicion for stroke at this time and patient had improvement in her symptoms therefore she is stable for discharge home. She is advised to continue regular headache regimen and follow-up with neurology as indicated.I discussed return precautions in detail with the patient if she had any new or worsening symptoms. Departure - Departure Disposition: 01 Home, Self Care Clinical Impression: Migraine Qualifiers: Migraine type: hemiplegic Status migrainosus presence: without status migrainosus Intractability: not intractable Qualified Code(s): G43.409 - Hemiplegic migraine, not intractable, without status migrainosus Condition: Good Instructions: ED Headache Migraine Comments: Thank you for choosing [facility]. You presented with a migraine headache, consistent with your prior hemiplegic migraines. You had improvement after IV fluids, Compazine, and a dose of Toradol. Please continue your regular headache regimen at home, ensure staying well-hydrated and getting plenty of rest. If you develop new or worsening symptoms, return to the ER.
[2023-03-13 19:48] VITALS: BP 120/74
== END 2023-03-13 19:54 | disposition home or self-care (01) ==
LOC: ED 18:27
DX: G43.409 Hemiplegic migraine, not intractable, without status migrainosus (principal)
CPT/HCPCS: 96374; 96375; 99283